=== PATIENT | female | born 1960 | race Caucasian/White ===

== ENCOUNTER 2016-10-30 11:40 | Observation (INO) | payer MEDICAID, OTHER ==
[2016-10-30 12:21] LABS: Hematocrit 38 % (35-47); Hemoglobin 12.6 g/dl (12.0-16.0); Mean Corpuscular HGB Conc 33 g/dl (31-36); Mean Corpuscular Hemoglobin 29 pg (27-31); Mean Corpuscular Volume 86 fL (80-97); Mean Platelet Volume 6 um3 (7.4-10.4); Red Cell Distribution Width 13 % (10.5-15); White Blood Count 18.1 10^3/ul (3.5-10.8)
--- NOTE | 2016-10-30 12:26 | RAD ---
INDICATION: Chest pain COMPARISON: None TECHNIQUE: An AP portable view obtained at 1220 hours is submitted. FINDINGS: Bones/Soft Tissues: There are no acute bony findings. Cardiomediastinal: The cardiomediastinal silhouette is normal. Lungs: There are no infiltrates. Pleura: There are no pleural effusions. Other: None IMPRESSION: NORMAL CHEST.
[2016-10-30 12:38] LABS: Albumin 3.2 g/dL (3.2-5.2); BUN/Creatinine Ratio 22.8 (8-20); Calcium 8.7 mg/dL (8.6-10.3); EGFR African American 142.1 (>60); EGFR Non-African American 110.5 (>60); Globulin 3.9 g/dL (2-4); Potassium 3.1 mmol/L (3.5-5.0); Total Bilirubin 0.3 mg/dL (0.2-1.0); Total Protein 7.1 g/dL (6.4-8.9)
[2016-10-30 12:42] LABS: Troponin I 0.01 ng/mL (<0.04)
--- NOTE | 2016-10-30 13:14 | RAD ---
INDICATION: Right upper quadrant pain COMPARISON: April 02, 2016 TECHNIQUE: Longitudinal and transverse scans of the right upper quadrant were obtained. Doppler interrogation of the hepatic and portal venous system was performed. FINDINGS: Liver: The liver is echogenic. There are no masses. The liver is normal in size. TThe liver measures 15.6 cm in cephalocaudal dimension. Vessels: There is normal hepatic and portal venous flow. Bile ducts: There is no evidence of intrahepatic or extrahepatic ductal dilatation. The common duct measures 0.5 cm. Gallbladder: There are multiple gallstones. There is no thickening of the gallbladder wall or pericholecystic fluid.. Pancreas: The visualized pancreas appears normal Right kidney: The right kidney is normal in size and echogenicity. There are no masses or calculi. There is no evidence of hydronephrosis. The right kidney measures 10.9 x 5.7 x 5.4 cm. IVC and aorta: The aorta and superior vena cava appear normal. Fluid: There is no ascites. Other: None. IMPRESSION: HEPATIC STEATOSIS AND CHOLELITHIASIS, BOTH UNCHANGED.
[2016-10-30] MEDS ORDERED: HYDROmorphone INJ* 1 MG/ML CARPUJECT SYRINGE IV ONE (13:24)
[2016-10-30] MEDS ORDERED: NS 0.9% 1000 ML* 1,000 ML IV ONE ×2 (13:25→13:45)
[2016-10-30 13:27] LABS: C Reactive Protein 251.37 mg/L (< 5.00)
[2016-10-30] MEDS ORDERED: Ciprofloxacin 400MG IVPREMIX(* 400 MG/200 ML BAG IVPB ONE (14:00)
[2016-10-30] MEDS: NS 0.9% 1000 ML* 1,000 ML IV SCH (14:36)
[2016-10-30] MEDS: Ondansetron INJ* 2 MG/ML VIAL IV PRN ×2 (14:43→22:41)
[2016-10-30] MEDS: Morphine INJ* 2 MG/ML 1 ML CARPUJECT IV PRN ×3 (14:43→20:17)
[2016-10-30] MEDS ORDERED: metroNIDAZOLE IV 500 MG/100ML* 500 MG/100 ML BAG IVPB ONE (15:00)
--- NOTE | 2016-10-30 15:34 | ED ---
Sridevi Saleh Anna, scribed for Deon De La Garza MD on 10/30/16 at 1214 . Abdominal Pain/Female - HPI Summary HPI Summary: Patient is a 56 y/o female coming to [facility] presenting with constant RUQ abd pain that began four days ago. The pain radiates to the back and is described as severity of 6/10. She has white, chalky stools and has experienced emesis and diarrhea. Denies fever or melena. The pain is exacerbated by eating or drinking. The pain is not alleviated by a heating pad. She takes Omeprazole daily. IF THERE IS ONE, PLEASE SEE DICTATION BY DR. DE LA GARZA FOR FURTHER INFORMATION. - History of Current Complaint Chief Complaint: EDAbdPain Stated Complaint: UPPER RT ABD PAIN Time Seen by Provider: 10/30/16 12:04 Hx Obtained From: Patient Onset/Duration: Lasting Days, Still Present Timing: Constant Severity Initially: Moderate Severity Currently: Moderate Pain Intensity: 6 Pain Scale Used: 0-10 Numeric Location: Discrete At: RUQ Radiates: Yes Radiates to: Back Character: Sharp Aggravating Factor(s): Food Alleviating Factor(s): Nothing Associated Signs and Symptoms: Positive: Other: - white, chalky stool Allergies/Adverse Reactions: Allergies Allergy/AdvReac Type Severity Reaction Status Date / Time No Known Allergies Allergy Verified 10/30/16 12:14 Home Medications: Home Medications Omeprazole CAP* [Prilosec CAP* 20 MG] 20 mg PO BID 10/30/16 [History Confirmed 10/30/16] PMH/Surg Hx/FS Hx/Imm Hx Previously Healthy: No GI History: Reports: Hx Gall Bladder Disease Infectious Disease History: No Infectious Disease History: Denies: Traveled Outside the [place] in Last 30 Days - Family History Known Family History: Positive: Cardiac Disease - Father, Diabetes - Mother, Renal Disease - Mother - Social History Occupation: Employed Full-time Alcohol Use: Daily - 1-2 glasses wine Substance Use Type: Reports: None Smoking Status (MU): Never Smoked Tobacco Review of Systems Constitutional: Negative Eyes: Negative ENT: Negative Cardiovascular: Negative Respiratory: Negative Positive: Abdominal Pain, Vomiting, Diarrhea Positive: other - white, chalky stool Musculoskeletal: Negative Skin: Negative Neurological: Negative Psychological: Normal All Other Systems Reviewed And Are Negative: Yes - Comments Additional Review of Systems Comments: IF THERE IS ONE, PLEASE SEE DICTATION BY DR. DE LA GARZA FOR FURTHER INFORMATION. Physical Exam - Summary Physical Exam Summary: GENERAL: Awake, alert, oriented, no acute distress, very pleasant, obese HEENT: Head is normocephalic, atraumatic, anicteric sclera, pink conjunctiva, mucous membranes moist, no erythema, no discharge, no lesions, neck is supple, trachea is midline, no JVD CARDIAC: Regular rate and rhythm, S1, S2, no rub, no murmur, no gallop, 2+ radial and pedal pulses bilaterally RESPIRATORY: Clear to auscultation bilaterally with no rales, rhonchi, or wheezes, non-tender ABDOMEN: Bowel sounds positive, no bruit, soft, non-tender, no tenderness over McBurneys point, positive [place] sign, negative Psoas sign, 2+ femoral pulses , no CVA tenderness EXTREMITIES: No edema, moving all extremities in a grossly normal manner SKIN: Warm, dry NEUROLOGICAL: Mood is appropriate, moving all extremities in a grossly normal manner IF THERE IS ONE, PLEASE SEE DICTATION BY DR. DE LA GARZA FOR FURTHER INFORMATION. Triage Information Reviewed: Yes Vital Signs On Initial Exam: Initial Vitals Temp Pulse Resp BP Pulse Ox 96.3 F 102 16 142/55 98 10/30/16 11:43 10/30/16 11:43 10/30/16 11:43 10/30/16 11:43 10/30/16 11:43 Vital Signs Reviewed: Yes Diagnostics - Vital Signs Vital Signs Temp Pulse Resp BP Pulse Ox 10/30/16 11:43 96.3 F 102 16 142/55 98 - Laboratory Result Diagrams: 10/30/16 12:10 10/30/16 12:10 Lab Statement: Any lab studies that have been ordered have been reviewed, and results considered in the medical decision making process. - Radiology CXR Xray Interpretation: No Acute Changes Radiology Interpretation Completed By: Radiologist - Ultrasound No standard instances Ultrasound Interpretation: No Acute Changes Ultrasound Interpretation Completed By: Radiologist - GALLBLADDER US IMPRESSION : HEPATIC STEATOSIS AND CHOLELITHIASIS, BOTH UNCHANGED. - EKG 11:50 Cardiac Rate: NL - 93 bpm EKG Rhythm: Sinus Rhythm EKG Interpretation: NSR, no acute ischemia Abdominal Pain Fem Course/Dx - Diagnoses Provider Diagnoses: Cholelithiasis - Provider Notifications Discussed Care Of Patient With: Dr. West (surgeon) at 13:47. Accepts pt for admission. Discharge - Discharge Plan Condition: Stable Disposition: ADMITTED TO [facility] documentation as recorded by the Sridevi smith Anna accurately reflects the service I personally performed and the decisions made by me, Deon De La Garza MD.
[2016-10-30] MEDS ORDERED: Morphine INJ* 4 MG/ML 1 ML CARPUJECT IV PRN (17:35)
--- NOTE | 2016-10-30 19:46 | HP ---
HISTORY AND PHYSICAL: DATE OF ADMISSION: 10/30/16 HISTORY OF PRESENT ILLNESS: I was contacted by the emergency room staff to evaluate Ms. Brittany Espinosa who presented with severe abdominal pain, had elevated white blood cell count, and concern for cholecystitis. I directly admitted her to the floor after discussion with the ER attending and saw the patient sooner after in room 333. The patient describes a 4-day history of upper abdominal pain that radiated to her back. It was not relieved with her omeprazole that she normally takes. She had nausea and vomiting as well as diarrhea. It worsened without improvement and she presented to the emergency room. She has a history of symptomatic gallstones and was worked up half a year ago in the emergency room, but was unable to go to a surgeon because of insurance issues. She describes this set of symptoms similar to half a year ago. She has decreased appetite. She denies any fevers or chills. PAST MEDICAL HISTORY: Gastroesophageal reflux disease. PAST SURGICAL HISTORY: None. MEDICATIONS: Omeprazole over the counter. ALLERGIES: She has no known drug allergies. FAMILY HISTORY: Noncontributory. No history of ulcerative colitis, Crohn's disease, or biliary cancers. SOCIAL HISTORY: She does not smoke, quit just over 8 years ago. She drinks wine a day. She cleans houses. Does not have insurance. She lives with her boyfriend. She is seeking out healthcare, but does not follow with any primary care doctor. Has not had a mammogram or a Pap smear in quite sometime. She is postmenopausal. REVIEW OF SYSTEMS: No shortness of breath. No chest pain. Abdominal complaints as described. No cardio-vascular or cerebrovascular disease. She has good exercise tolerance. No dark-colored urine. No light-colored stools. She does have diarrhea, but this is only recent. She has never had colonoscopy. She has gained approximately 50 pounds in the last 3 years. PHYSICAL EXAMINATION GENERAL: Alert and oriented x3 in no apparent distress. VITAL SIGNS: She is afebrile. Vital signs are stable. She is on room air, saturating at 98%. HEENT: Normocephalic, atraumatic. Sclerae anicteric. Mucous membranes are moist. NECK: No lymphadenopathy. LUNGS: Clear to auscultation bilaterally. ABDOMEN: Soft, obese, nondistended. Right upper quadrant pain without Charles' s sign. No CVA tenderness. No scars or hernias. EXTREMITIES: With no pitting edema. RECTAL: Exam not performed. LABORATORY DATA: Reviewed, showed white count of 18.1, H and H 12.6/38. Metabolic panel does show a potassium of 3.1. Elevated CRP. Normal lipase. Normal bilirubin. Ultrasound images as well as report reviewed and consistent with multiple gallstones. No gallbladder wall thickening and a common bile duct of 0.5 cm. IMPRESSION: Acute cholecystitis with elevated white blood cell count, multiple gallstones that is symptomatic in a patient who is having a difficult time eating. My recommendation is admission, IV fluids, antibiotics. She is started on Cipro, Flagyl, potassium repletion, and OR for laparoscopic cholecystectomy. I outlined the details of the procedure going over the risks, benefits, and alternatives to laparoscopic cholecystectomy. The patient wishes to proceed. We spoke about the possible complications which include but not limited to bleeding, infection, bile leak, common bile duct or bowel injury, retained common bile duct stones with the need for additional surgery or open procedure. The patient agreed and wishes to proceed in this fashion. She understands that we will look towards doing a surgery either tomorrow or Monday and that it may be one of my partners doing the procedure. She understands. She will maintain n.p.o. status after midnight tonight. [id number]/[facility] #: [id number] MTDD
[2016-10-30] MEDS: KCL 10 MEQ/50 ML IVPREMIX* 10 MEQ/50 ML BAG IV SCH ×2 (20:21→22:35)
[2016-10-31] MEDS: metroNIDAZOLE IV 500 MG/100ML* 500 MG/100 ML BAG IVPB SCH ×2 (00:40→08:18)
[2016-10-31] MEDS: Morphine INJ* 2 MG/ML 1 ML CARPUJECT IV PRN (00:41)
[2016-10-31] MEDS ORDERED: Ciprofloxacin 400MG IVPREMIX(* 400 MG/200 ML BAG IVPB SCH (02:00)
[2016-10-31] MEDS: NS 0.9% 1000 ML* 1,000 ML IV SCH (05:01)
[2016-10-31 06:45] LABS: Albumin 2.7 g/dL (3.2-5.2); Direct Bilirubin 0.1 mg/dL (0.03-0.18); Globulin 2.8 g/dL (2-4); Indirect Bilirubin 0.3 mg/dL (0.3-1.0); Total Bilirubin 0.4 mg/dL (0.2-1.0); Total Protein 5.5 g/dL (6.4-8.9)
[2016-10-31] MEDS ORDERED: ceFAZolin 2 GM PREMIX (*) 2 GM/50 ML BAG IVPB ONE ×2 (09:45→09:47)
[2016-10-31] MEDS ORDERED: Bupivacaine 0.25% EPI 200,000* 30 ML SDV ONE (10:13)
[2016-10-31] MEDS ORDERED: fentaNYL* 50 MCG/ML 2 ML VIAL (100 MCG VIAL) ONE (10:20)
[2016-10-31] MEDS ORDERED: Midazolam* 1 MG/ML 2 ML VIAL (2 MG) ONE (10:20)
[2016-10-31] MEDS ORDERED: Propofol* 10 MG/ML 20 ML BTL IV PUSH ONE (10:21)
[2016-10-31] MEDS ORDERED: Rocuronium* 10 MG/ML VIAL ONE (10:32)
[2016-10-31] MEDS ORDERED: Succinylcholine* 20 MG/ML 10 ML VIAL ONE (10:32)
[2016-10-31] MEDS ORDERED: Phenylephrine IV* 40 MCG/ML 10 ML SYRINGE ONE (11:04)
[2016-10-31] MEDS ORDERED: Neostigmine Methylsulfate* 2 MG/2 ML SYRINGE ONE (11:11)
[2016-10-31] MEDS ORDERED: Glycopyrrolate IV* 0.2 MG/ML 1 ML VIAL ONE ×2 (11:11→11:19)
[2016-10-31] MEDS ORDERED: HYDROmorphone INJ* 1 MG/ML CARPUJECT SYRINGE IV PRN (11:52)
[2016-10-31] MEDS ORDERED: DiMENhydriNATE IV* 50 MG/ML VIAL IV PUSH PRN (11:52)
[2016-10-31] MEDS ORDERED: fentaNYL* 50 MCG/ML 2 ML VIAL (100 MCG VIAL) IV PRN (11:52)
[2016-10-31] MEDS ORDERED: HYDROmorphone INJ* 1 MG/ML CARPUJECT SYRINGE ONE (12:09)
[2016-10-31] MEDS ORDERED: oxyCODONE/Acetamin 5/325 MG* TAB ONE (12:24)
[2016-10-31 13:02] VITALS: BP 112/64
--- NOTE | 2016-10-31 19:21 | OP ---
CC: Aries Anguiano MD OPERATIVE NOTE: DATE OF OPERATION: 10/31/16 DATE OF : 64 SURGEON: Aries Anguiano MD DOUGH CUTTING MACHINE OPERATOR: RUBY Dorantes ANESTHESIOLOGIST: Dr. De La O ANESTHESIA: General anesthetic, local infiltration. PRE-OP DIAGNOSIS: Cholecystitis. POST-OP DIAGNOSIS: Cholecystitis. OPERATIVE PROCEDURE: Laparoscopic cholecystectomy. DESCRIPTION OF PROCEDURE: The patient was supine on the operating table. After adequate intravenous sedation, general anesthetic, compression stockings, Lou Hugger warmer, and intravenous antibiotics, the abdomen was prepped with antiseptic and draped in a sterile fashion. Local infiltrative anesthesia was carried out in the umbilicus and subsequently at the additional cannula site. A small umbilical incision was created. Blunt port cannula was placed. Insufflation was carried out with carbon dioxide. Additional cannulae, 12 mm subxiphoid and 5 mm right upper quadrant and right anterior axillary line were placed through small stab wounds under direct vision. The gallbladder was tented upward. Areolar tissue was taken down at the cystic duct and cystic artery which were readily identified and clipped and divided. Gallbladder was taken off the liver bed without spillage and was removed through the subxiphoid port without difficulty. The operative field was irrigated with warm saline solution. Free fluid was suctioned out. Hemostasis was excellent. The cannulae were removed. Pneumoperitoneum allowed to escape. The umbilical fascia was closed with 0 Polysorb and skin with 5-0 Polysorb and followed by Steri-Strips. She tolerated the procedure well, was brought to Recovery in good condition. There were no complications. No drains. Pathologic specimen was gallbladder. Sponge and instrument counts correct. Estimated blood loss was less than 30 mL. [id number]/[facility] #: [id number] [facility]
--- NOTE | 2016-10-31 21:50 | DS ---
CC: Dr. Anguiano DISCHARGE SUMMARY: DATE OF ADMISSION: 10/30/16 DATE OF DISCHARGE: 10/31/16 PRINCIPAL ADMITTING DIAGNOSIS: Symptomatic cholelithiasis and chronic cholecystitis. OPERATIVE PROCEDURE: On this admission laparoscopic cholecystectomy. COMPLICATIONS: None. HOSPITAL COURSE: The patient is a 56-year-old female came to the hospital with signs and symptoms o f cholecystitis and cholelithiasis and she was having lot of pain. She was admitted in the morning, was taken to the operating room for laparoscopic cholecystectomy, had uneventful surgery and was di scharged home shortly thereafter. She was discharged home with instructions and will follow up in t he office in approximately 1 week's time. [id number]/[facility] #: [id number]
== END 2016-10-31 13:06 | disposition home or self-care (01) ==
LOC: ED 11:40 → SSU 14:00
PROVIDERS: ADMIT Surgery; ATTEND Surgery
PROC: 0FT44ZZ Resection of Gallbladder, Percutaneous Endoscopic Approach (ICD-10-PCS; principal; 2016-10-30)
DX: K80.10 Calculus of gallbladder with chronic cholecystitis without obstruction (principal); K21.9 Gastro-esophageal reflux disease without esophagitis; N28.89 Other specified disorders of kidney and ureter; R94.31 Abnormal electrocardiogram [ECG] [EKG]
CPT/HCPCS: 36415; 71010; 76705; 80053; 80076; 82550; 82553; 83605; 83690; 83874; 83880; 84484; 85025; 85610; 85730; 86140; 88304; 93005; 96365; 96366; 96367; 96375; 96376; 99284; A9270-GY; G0378; J0330; J0690; J0744; J1170; J2250; J2270; J2405; J2704; J3010; J3480; J3490